=== PATIENT | male | born 1960 | race Caucasian/White ===

== ENCOUNTER 2017-09-06 17:30 | Inpatient (IN) | payer MEDICARE ==
[~2017-09-06] VITALS: Ht 165.1 cm; Wt 54.6 kg
--- NOTE | ~2017-09-06 | DS ---
PATIENT:GALE MAGAÑA :60 MEDICAL RECORD: [id number] DISCHARGE SUMMARY ADMISSION DATE: 09/06/17 DISCHARGE DATE: 09/11/17 ADMISSION DATE: 09/06/2017 DISCHARGE DATE: 09/11/2017 ADMIT DIAGNOSES: Acute respiratory failure with hypoxia. PRINCIPAL DIAGNOSIS: Accidental overdose on alcohol. OTHER DIAGNOSES: Acute respiratory failure with hypoxia, pneumonia due to ____ Staphylococcus aureus, pneumonia due to Pseudomonas, chronic obstructive pulmonary disease, toxic effect of ethanol, alcohol abuse with intoxication, blood alcohol level of 240 mg/100 mL or more, anxiety disorder, nicotine dependence, other medication use, hypokalemia, and anemia. CONSULTS: Pulmonology, Dr. Delgadillo. PROCEDURES: Respiratory ventilation, bronchoscopy with drainage of left lower lobe and right lower lobe and also drainage of bladder. HOSPITAL COURSE: The patient came into the Emergency Department, was ventilated. The patient was weaned off of the ventilator. The patient has a chronic tracheostomy. He improved during the course of this hospitalization and then was discharged home on 09/11/2017. DISCHARGE MEDICATIONS: Please refer to the patient's medication reconciliation form. FOLLOWUP: With Dr. Clifford in 1 week after discharge. TRANSINT:[id number] Voice Confirmation ID: [id number] DOCUMENT ID: [id number] KEKE CLIFFORD MD at 1737 CC: [id number] DICTATION DATE: 10/10/17 1355 TIME CLERK: 10/11/17 0440 DIS IN 09/11/17 [place] [address]
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
[2017-09-06 18:23] LABS: BASOPHILS 0.9 % (0-2); EOSINOPHILS 0.5 % (0-7); HEMATOCRIT 37.5 % (42.0-54.0); HEMOGLOBIN 12.9 g/dL (13.5-17.5); IMMATURE GRANULOCYTES 0.2 % (0-5); LYMPHOCYTES 11.7 % (15-50); MCH 32.1 pg (26.0-34.0); MCHC 34.4 g/dL (31.0-37.0); MCV 93.3 fL (80.0-100.0); MEAN PLATELET VOLUME 8.5 fL (7.4-10.4); MONOCYTES 9.6 % (2-11); NEUTROPHILS 77.1 % (40-80); PLATELET COUNT 186 10x3/uL (130-400); RBC 4.02 10x6/uL (4.20-6.10); RDW 15.5 % (11.5-14.5); WBC 4.4 10x3/uL (4.8-10.8)
[2017-09-06 18:37] LABS: APPEARANCE CLEAR (CLEAR); COLOR STRAW (YELLOW)
[2017-09-06 18:38] LABS: BILIRUBIN NEGATIVE (NEGATIVE); GLUCOSE NEGATIVE (NEGATIVE); KETONE NEGATIVE (NEGATIVE); NITRITE NEGATIVE (NEGATIVE); PROTEIN NEGATIVE (NEGATIVE); UROBILINOGEN NORMAL (NORMAL)
[2017-09-06 18:41] LABS: UDS - AMPHET NEGATIVE QUAL (NEGATIVE); UDS - BARB NEGATIVE QUAL (NEGATIVE); UDS - BENZO POSITIVE QUAL (NEGATIVE); UDS - COCAINE NEGATIVE QUAL (NEGATIVE); UDS - OPIATE NEGATIVE QUAL (NEGATIVE); UDS - PCP NEGATIVE QUAL (NEGATIVE); UDS - THC NEGATIVE QUAL (NEGATIVE)
[2017-09-06 18:45] LABS: ALBUMIN 3.6 g/dL (3.4-5.0); ALKALINE PHOSPHATASE 72 U/L (46-116); ALT (SGPT) 19 U/L (10-68); BILIRUBIN - TOTAL 0.28 mg/dL (0.2-1.3); CALC OSMOLALITY 263 mosm/kg (275-300); CALCIUM 8.3 mg/dL (8.5-10.1); CARBON DIOXIDE 19.6 mmol/L (21.0-32.0); CHLORIDE - SERUM 99 mmol/L (98-107); GLUCOSE 100 mg/dL (74-106); PROTEIN - SERUM 6.5 g/dL (6.4-8.2); SODIUM 131 mmol/L (136-145); UREA NITROGEN 15 mg/dL (7-18); eGFR NON AFRICAN AMERICAN 82 mL/min (90-120)
[2017-09-06 18:46] LABS: POTASSIUM - SERUM 2.9 mmol/L (3.5-5.1)
[2017-09-06 18:48] LABS: TROPONIN-I < 0.017 ng/mL (0.000-0.060)
[2017-09-06 18:56] LABS: APTT 23.6 SECONDS (22.8-39.4); INR 0.93 (0.85-1.17); PROTIME 12.1 SECONDS (11.6-15.0)
[2017-09-06 22:18] VITALS: BP 136/95
[2017-09-06 23:00] VITALS: BP 92/72
[2017-09-06 23:20] VITALS: BP 136/95; BMI 18.5
[2017-09-07] VITALS (24 sets, daily range): BP systolic 88–138; BP diastolic 66–97; Ht 165.1 cm; Wt 54.6 kg
[2017-09-07 06:52] LABS: ALBUMIN 3.4 g/dL (3.4-5.0); ALKALINE PHOSPHATASE 72 U/L (46-116); ALT (SGPT) 22 U/L (10-68); BILIRUBIN - TOTAL 0.17 mg/dL (0.2-1.3); CALCIUM 8.6 mg/dL (8.5-10.1); CHLORIDE - SERUM 106 mmol/L (98-107); CREATININE - SERUM 0.8 mg/dL (0.6-1.3); GLUCOSE 76 mg/dL (74-106); PHOSPHOROUS 3.2 mg/dL (2.5-4.9); PROTEIN - SERUM 6.2 g/dL (6.4-8.2); SODIUM 140 mmol/L (136-145); eGFR NON AFRICAN AMERICAN > 90 mL/min (90-120)
[2017-09-07 06:55] LABS: CALC OSMOLALITY 276 mosm/kg (275-300); POTASSIUM - SERUM 4.4 mmol/L (3.5-5.1); UREA NITROGEN 10 mg/dL (7-18)
[2017-09-07] MEDS ORDERED: IPRAT-ALBUT 0.5-3 ML UPD (07:12)
[2017-09-07] MEDS ORDERED: PERCOCET 5-3251 TAB PO (07:12)
[2017-09-07] MEDS ORDERED: PULMICORT0.5 MG/21 INH (07:13)
[2017-09-07 07:26] LABS: BASOPHILS 0.6 % (0-2); EOSINOPHILS 1.5 % (0-7); HEMATOCRIT 39.9 % (42.0-54.0); HEMOGLOBIN 13.9 g/dL (13.5-17.5); IMMATURE GRANULOCYTES 0.2 % (0-5); LYMPHOCYTES 12.2 % (15-50); MCH 32.5 pg (26.0-34.0); MCHC 34.8 g/dL (31.0-37.0); MCV 93.2 fL (80.0-100.0); MEAN PLATELET VOLUME 9.1 fL (7.4-10.4); MONOCYTES 11.2 % (2-11); NEUTROPHILS 74.3 % (40-80); PLATELET COUNT 193 10x3/uL (130-400); RBC 4.28 10x6/uL (4.20-6.10); WBC 5.2 10x3/uL (4.8-10.8)
[2017-09-07] MEDS ORDERED: CYCLOBENZAPRINE10 MG PO (08:37)
[2017-09-08] VITALS (12 sets, daily range): BP systolic 90–132; BP diastolic 67–91
[2017-09-08 05:06] LABS: BASOPHILS 0.3 % (0-2); EOSINOPHILS 2.1 % (0-7); HEMOGLOBIN 12.9 g/dL (13.5-17.5); IMMATURE GRANULOCYTES 0.3 % (0-5); LYMPHOCYTES 11.4 % (15-50); MCH 31.9 pg (26.0-34.0); MCHC 33.9 g/dL (31.0-37.0); MCV 93.8 fL (80.0-100.0); MONOCYTES 10.1 % (2-11); NEUTROPHILS 75.8 % (40-80); PLATELET COUNT 198 10x3/uL (130-400); RBC 4.05 10x6/uL (4.20-6.10); RDW 15.9 % (11.5-14.5); WBC 3.9 10x3/uL (4.8-10.8)
[2017-09-08 05:51] LABS: CALC OSMOLALITY 274 mosm/kg (275-300); CALCIUM 8.4 mg/dL (8.5-10.1); CARBON DIOXIDE 22.5 mmol/L (21.0-32.0); CHLORIDE - SERUM 106 mmol/L (98-107); CREATININE - SERUM 0.9 mg/dL (0.6-1.3); GLUCOSE 96 mg/dL (74-106); MAGNESIUM - SERUM 2.3 mg/dL (1.8-2.4); PHOSPHOROUS 2.9 mg/dL (2.5-4.9); SODIUM 138 mmol/L (136-145); UREA NITROGEN 10 mg/dL (7-18); eGFR NON AFRICAN AMERICAN > 90 mL/min (90-120)
[2017-09-08 05:56] LABS: POTASSIUM - SERUM 3.7 mmol/L (3.5-5.1)
[2017-09-08 17:08] LABS: ACID FAST SMEAR Negative (()); AFB SPECIMEN PROCESSING Concentration (())
[2017-09-09] VITALS: BP 110/85
[2017-09-09 04:00] VITALS: BP 136/82
[2017-09-09 06:19] LABS: ANION GAP 15.5 mmol/L (8-16); CALCIUM 8.8 mg/dL (8.5-10.1); CARBON DIOXIDE 24.8 mmol/L (21.0-32.0); CREATININE - SERUM 1.1 mg/dL (0.6-1.3); POTASSIUM - SERUM 3.3 mmol/L (3.5-5.1); VANCOMYCIN - TROUGH 14.4 ug/mL (10.0-20.0)
[2017-09-09 08:47] VITALS: BP 136/101
[2017-09-09 18:42] VITALS: BP 126/74
[2017-09-09 20:00] VITALS: BP 120/86
[2017-09-10] VITALS: BP 128/85
[2017-09-10 04:00] VITALS: BP 123/67
[2017-09-10 08:21] VITALS: BP 104/75
[2017-09-10 11:12] LABS: FUNGUS STAIN Final report (())
[2017-09-10 15:52] VITALS: BP 137/87
[2017-09-10] MEDS ORDERED: LEVAQUIN500 MG PO (18:27)
[2017-09-11] VITALS: BP 146/93
[2017-09-11 08:45] VITALS: BP 101/70
[2017-09-17 18:09] LABS: AEROBE ID Final report (())
[2017-10-04 11:21] LABS: FUNGUS MYCOLOGY CULTURE Final report (())
== END 2017-09-11 12:12 | disposition home or self-care (01) | DRG 917 ==
LOC: D.ER 17:30 → D.ICU 20:45 → OBSVTIME 22:18 → D.MS 22:19 → D.ICU 22:19 → D.MS 09-08 12:32
PROVIDERS: Emergency Medicine; Family Medicine; Internal Medicine Pulmonary Disease
PROC: 5A1935Z Respiratory Ventilation, Less than 24 Consecutive Hours (ICD-10-PCS; principal; 2017-09-06)
PROC: 0T9B70Z Drainage of Bladder with Drainage Device, Via Natural or Artificial Opening (ICD-10-PCS; 2017-09-06)
PROC: 0B9B8ZZ Drainage of Left Lower Lobe Bronchus, Via Natural or Artificial Opening Endoscopic (ICD-10-PCS; 2017-09-07)
PROC: 0B968ZZ Drainage of Right Lower Lobe Bronchus, Via Natural or Artificial Opening Endoscopic (ICD-10-PCS; 2017-09-07)
DX: T40.2X1A Poisoning by other opioids, accidental (unintentional), initial encounter (principal); J96.01 Acute respiratory failure with hypoxia; J15.212 Pneumonia due to Methicillin resistant Staphylococcus aureus; J15.1 Pneumonia due to Pseudomonas; J44.1 Chronic obstructive pulmonary disease with (acute) exacerbation; T51.0X1A Toxic effect of ethanol, accidental (unintentional), initial encounter; F10.129 Alcohol abuse with intoxication, unspecified; Y90.8 Blood alcohol level of 240 mg/100 ml or more; F41.9 Anxiety disorder, unspecified; F17.200 Nicotine dependence, unspecified, uncomplicated; F15.90 Other stimulant use, unspecified, uncomplicated; E87.6 Hypokalemia; Z78.1 Physical restraint status; D64.9 Anemia, unspecified